=== PATIENT | female | born 1950 | race Caucasian/White ===

== ENCOUNTER 2022-08-08 13:20 | Emergency (ER) | payer MEDICARE, OTHER ==
[~2022-08-08] VITALS: Ht 172.7 cm; Wt 56.7 kg
--- NOTE | 2022-08-08 13:34 | NUR ---
PAtient AOx4, able to express her concerns. Patient states she has abdominal pain. Discussed plan of care, patient verbalized agreement. All safety precautions taken.
[2022-08-08] MEDS ORDERED: KETOROLAC TROMETHAMINE INJ 30 MG/ML VIAL IV ONE (14:30)
[2022-08-08 15:21] LABS: BASOPHILS % (AUTO) 0.5 % (0.0-2.0); EOSINOPHILS % (AUTO) 4.8 % (0.0-6.0); HEMATOCRIT 41 % (33-45); HEMOGLOBIN 12.8 g/dL (11.5-14.8); LYMPHOCYTES # (AUTO) 2.2 K/uL (0.8-4.8); LYMPHOCYTES % (AUTO) 23.8 % (20.0-44.0); MEAN CORPUSCULAR HGB CONC 31 g/dl (31.0-36.0); MEAN CORPUSCULAR VOLUME 89 fL (82-100); MONOCYTES # (AUTO) 0.7 K/uL (0.1-1.30); MONOCYTES % (AUTO) 7.3 % (2.0-12.0); NEUTROPHILS % (AUTO) 63.6 % (43.0-81.0); PLATELET COUNT (AUTO) 189 K/uL (150-450); RED BLOOD CELL COUNT(AUTO) 4.67 MIL/uL (4.0-5.2); WHITE BLOOD COUNT (AUTO) 9.4 K/uL (4.3-11.0)
[2022-08-08] MEDS ORDERED: KETOROLAC TROMETHAMINE 15 MG/ML VIAL ONE (15:53)
--- NOTE | 2022-08-08 16:09 | NUR ---
Patient in bed, sleeping, no signs of distress. Will continue to monitor throughout shift.
[2022-08-08 16:17] LABS: CALCIUM, SERUM 9.6 mg/dL (8.5-10.1); CARBON DIOXIDE 28 mmol/L (21-32); CHLORIDE 104 mmol/L (98-107); GLUCOSE 101 mg/dL (74-106); POTASSIUM 4.4 mmol/L (3.5-5.1); SODIUM SERUM 138 mmol/L (136-145); UREA NITROGEN, BLOOD 11 mg/dL (7-18)
[2022-08-08 16:18] LABS: ALANINE AMINOTRANSFERASE 27 U/L (12-78); ALBUMIN 3.4 g/dL (3.4-5.0); ALKALINE PHOSPHATASE 118 U/L (46-116); ASPARTATE AMINOTRANSFERASE 24 U/L (15-37); BILIRUBIN,DIRECT 0.1 mg/dL (0.0-0.2); BILIRUBIN,TOTAL 0.4 mg/dL (0.2-1.0); CREATININE 0.9 mg/dL (0.6-1.3); TOTAL PROTEIN, SERUM 7.3 g/dL (6.4-8.2)
[2022-08-08 16:19] LABS: BILIRUBIN,URINE NEGATIVE (NEGATIVE); COLOR,URINE YELLOW (YELLOW); LEUKOCYTE ESTERASE ,URINE NEGATIVE (NEGATIVE); NITRITE, URINE NEGATIVE (NEGATIVE); PROTEIN,URINE NEGATIVE (NEGATIVE); UGLUCOSE NEGATIVE (NEGATIVE); UROBILINOGEN,URINE 0.2 EU/dL (0.2)
[2022-08-08 16:19] LABS: LIPASE 16 U/L (73-393)
[2022-08-08 16:27] LABS: BACTERIA,URINE None seen /HPF (None Seen); WBC,URINE 0-2 /HPF (0-3)
[2022-08-08] MEDS ORDERED: IOHEXOL-300 100 ML VIAL IV ONE (16:34)
[2022-08-08] MEDS ORDERED: IV NS 0.9% 250 ML IV ONE (16:34)
[2022-08-08 16:39] LABS: MAGNESIUM 1.9 mg/dL (1.8-2.4)
[2022-08-08 16:40] VITALS: BP 155/91
--- NOTE | 2022-08-08 19:39 | NUR ---
Handoff provided to night nurse for continuity of care
--- NOTE | 2022-08-08 19:54 | NUR ---
[facility] CALLED FOR BLS GOING BACK TO SNF PER [facility] ETA - 45 MIN
[2022-08-08] MEDS ORDERED: DOCU-141 PO (20:03)
--- NOTE | 2022-08-08 20:45 | NUR ---
REPORT GIVEN TO MARY ALICE FROM [facility] FOR ANG; [facility] AT PT[facility]S BEDSIDE TO [facility]
== END 2022-08-08 21:32 ==
LOC: ER 13:25
DX: N20.0 Calculus of kidney (principal); K59.00 Constipation, unspecified; R10.31 Right lower quadrant pain; Z79.899 Other long term (current) drug therapy
CPT/HCPCS: 99285; 74177; 96374; 85025; 80048; 83690; 80076; 83735; 81001; 36415; J7050; Q9967; J1885